=== PATIENT | male | born 1955 ===

== ENCOUNTER 2018-04-06 02:43 | Inpatient (IN) | payer MEDICAID, OTHER ==
[~2018-04-06] VITALS: Ht 188 cm; Wt 111.7 kg
[~2018-04-06 02:43] MED LIST: ATEN25TA PO; CARV-39 PO; CARV12.52 PO; DICY20TA3 PO; ENOX150S5 SQ; FOLI-17 PO; LACT20SO13 PO; LEVO125T5 PO; LEVO25TA2 PO; LEVO25TA4 PO; LISI-167 PO; LOPE2CAP PO; LORA-446 PO; METF10002 PO; METF500T17 PO; MULT-658 PO; MULT-750 PO; NIFE10CA49 PO; OMEP-110 PO; OMEP20TA62 PO; ONDA4TAB13 SL; OXYC5TAB3 PO; PANT40TA5 PO; PROM25TA10 PO; PROP20TA PO; RIFA550T4 PO; SUCR1ORA5 PO; THIA100T67 PO; WARF5TAB PO
[2018-04-06] MEDS ORDERED: LORazepam 2 MG/ML, 1ML ONE (02:54)
[2018-04-06] MEDS ORDERED: PROMETHAZINE 25 MG/ML, 1ML ONE (02:55)
[2018-04-06] MEDS ORDERED: SODIUM CHLORIDE FLUSH 10ML SYR IVF ONE (03:00)
[2018-04-06] MEDS ORDERED: LORazepam 2 MG/ML, 1ML IVPush PRN (03:00)
[2018-04-06] MEDS ORDERED: PROMETHAZINE 25 MG/ML, 1ML IM ONE (03:00)
[2018-04-06] MEDS ORDERED: MAGNESIUM SULFATE 1 GM, THIAMINE 100 MG, FOLIC ACID 1 MG, MVI ADULT 10 ML in SODIUM CHL... IV ONE (03:00)
--- NOTE | 2018-04-06 03:00 | NUR ---
PT RESTING ON GURNEY, MONITORS IN PLACE, CALL LIGHT WITHIN REACH, SIDERAILS UP X2. PT MEDICATED PER MAR
[2018-04-06 03:03] LABS: BASOPHILS # (AUTO) 0.01 x10^3/uL (0-0.1); BASOPHILS % (AUTO) 0 % (0-1); EOSINOPHILS # (AUTO) 0.18 x10^3/uL (0-0.4); EOSINOPHILS % (AUTO) 4 % (1-7); LYMPHOCYTES # (AUTO) 1.39 x10^3/uL (1-3.4); LYMPHOCYTES % (AUTO) 30 % (22-44); MD NO; MEAN CORPUSCULAR HGB CONC 34.1 g/dL (33.2-36.2); MEAN CORPUSCULAR VOLUME 93.8 fL (81-97); MEAN PLATELET VOLUME 6.6 fL (7.4-10.4); MONOCYTES # (AUTO) 0.46 x10^3/uL (0.2-0.8); MONOCYTES % (AUTO) 10 % (2-9); NEUTROPHILS # (AUTO) 2.63 x10^3/uL (1.8-6.8); NEUTROPHILS % (AUTO) 56 % (42-75); PLATELET COUNT 112 x10^3/uL (130-400); RED CELL DISTRIBUTION WIDTH 14.5 % (9.4-14.8)
[2018-04-06 03:13] LABS: INTERNATIONAL NORMALIZED RATIO 1.09 (0.93-1.1); PROTHROMBIN TIME 11.4 Seconds (9.6-11.5)
[2018-04-06 03:15] LABS: ALANINE AMINOTRANSFERASE 84 U/L (12-78); ALBUMIN 3.3 g/dL (3.4-5.0); ANION GAP 9 mmol/L (5-15); CALCIUM 7.7 mg/dL (8.5-10.1); CHLORIDE 100 mmol/L (98-107); CREATININE 0.72 mg/dL (0.7-1.3)
[2018-04-06 03:19] LABS: ALKALINE PHOSPHATASE 92 U/L (45-117); TOTAL PROTEIN 8.4 g/dL (6.4-8.2); TROPONIN I < 0.015 ng/mL (0.000-0.045)
--- NOTE | 2018-04-06 03:42 | NUR ---
PT RESTING CALMLY WITH EYES CLOSED, OPENS EYES TO VERBAL RESPONSE, MONITORS IN PLACE, SIDERAILS UP X2, CALL LIGHT WITHIN REACH, IV FLUIDS INFUSING. AWAITING ROOM FOR TRANSFER TO FLOOR
[2018-04-06 04:49] VITALS: BP 126/71
[2018-04-06] MEDS: LEVOTHYROXINE 125 MCG TABLET PO SCH (06:00)
[2018-04-06] MEDS ORDERED: DOCUSATE 100 MG CAPSULE PO PRN (06:00)
[2018-04-06] MEDS ORDERED: POLYETHYLENE GLYCOL 17 GM PACKET PO PRN (06:00)
[2018-04-06] MEDS ORDERED: PROMETHAZINE 25 MG/ML, 1ML IM PRN (06:00)
[2018-04-06] MEDS ORDERED: ONDANSETRON 2MG/ML, 2ML IVPush PRN (06:00)
[2018-04-06] MEDS: LACTULOSE 20 GM/30 ML UDC PO SCH ×3 (06:00→20:29)
[2018-04-06] MEDS ORDERED: ONDANSETRON ODT 4 MG PO PRN (06:00)
[2018-04-06] MEDS ORDERED: hydrALAzine 20 MG/ML, 1ML IVPush PRN (06:00)
[2018-04-06] MEDS ORDERED: HYDROmorphone 2 MG/ML, 1ML IVPush PRN (06:00)
[2018-04-06] MEDS ORDERED: BISACODYL 10 MG SUPP PR PRN (06:00)
[2018-04-06] MEDS: HEPARIN 5,000 UNITS/ML, 1ML SQ SCH ×3 (06:38→22:09)
[2018-04-06 06:50] LABS: TROPONIN I < 0.015 ng/mL (0.000-0.045)
[2018-04-06 06:53] LABS: HEMOGLOBIN A1C 6.5 % (4.2-6.3)
[2018-04-06 06:54] VITALS: BP 110/64
[2018-04-06 06:56] LABS: FREE T4 (FREE THYROXINE) 0.87 ng/dL (0.76-1.46)
[2018-04-06] MEDS ORDERED: PANTOPRAZOLE 40 MG IV IVPush SCH (07:30)
[2018-04-06] MEDS: INSULIN LISPRO 100 UNITS/ML, PEN SQ-INSULIN SCH ×4 (09:12→20:03)
[2018-04-06] MEDS ORDERED: LORazepam 1MG TABLET PO PRN ×2 (10:00)
[2018-04-06] MEDS: FOLIC ACID 1 MG TABLET PO SCH (10:17)
[2018-04-06] MEDS: MULTIVITAMIN 1 TABLET PO SCH (10:17)
[2018-04-06] MEDS: LORazepam 1MG TABLET PO PRN ×3 (10:17→14:45)
[2018-04-06] MEDS: ATENOLOL 25 MG TABLET PO SCH (10:18)
[2018-04-06] MEDS: THIAMINE 100MG TABLET PO SCH (10:18)
[2018-04-06 12:18] LABS: TROPONIN I < 0.015 ng/mL (0.000-0.045)
[2018-04-06] MEDS: THIAMINE 200 MG, MVI ADULT 10 ML, FOLIC ACID 1 MG in D5%-0.9% NACL 1,000 ML IV SCH (12:36)
[2018-04-06 12:43] VITALS: BP 132/62
[2018-04-06 13:30] VITALS: BP 107/59
[2018-04-06 15:45] VITALS: BP 115/61
[2018-04-06 19:10] VITALS: BP 109/59
[2018-04-07 01:52] VITALS: BP 106/87
[2018-04-07] MEDS: HEPARIN 5,000 UNITS/ML, 1ML SQ SCH ×3 (05:41→21:00)
[2018-04-07] MEDS: PANTOPROZOLE 40MG TABLET PO SCH (05:41)
[2018-04-07] MEDS: LEVOTHYROXINE 125 MCG TABLET PO SCH (05:41)
[2018-04-07 05:43] LABS: MEAN CORPUSCULAR HEMOGLOBIN 32.1 pg (27.5-34.5); MEAN CORPUSCULAR VOLUME 94.3 fL (81-97); MEAN PLATELET VOLUME 7.1 fL (7.4-10.4); PLATELET COUNT 91 x10^3/uL (130-400); RED BLOOD COUNT 3.99 x10^6/uL (4.38-5.82); RED CELL DISTRIBUTION WIDTH 14.7 % (9.4-14.8)
[2018-04-07 06:07] LABS: CHLORIDE 106 mmol/L (98-107)
[2018-04-07 06:09] LABS: MD YES
[2018-04-07 06:17] LABS: BAND#(MANUAL) 0.14 x10^3/uL; BANDS%(MANUAL) 4 % (0-7); LYMPH#(MANUAL) 0.68 x10^3/uL (1-3.4); LYMPHS% (MANUAL) 19 % (22-44); MONOS#(MANUAL) 0.47 x10^3/uL (0.3-2.7); MONOS% (MANUAL) 13 % (2-9)
[2018-04-07 06:18] LABS: EOS#(MANUAL) 0.22 x10^3/uL (0.0-0.4); EOS% (MANUAL) 6 % (1-7); SEG#(MANUAL) 2.09 x10^3/uL (1.8-6.8); SEGS% (MANUAL) 58 % (42-75)
[2018-04-07 06:22] LABS: ALANINE AMINOTRANSFERASE 61 U/L (12-78); ALBUMIN 2.9 g/dL (3.4-5.0); ALKALINE PHOSPHATASE 74 U/L (45-117); ANION GAP 5 mmol/L (5-15); BILIRUBIN,TOTAL 2.1 mg/dL (0.2-1.0); CALCIUM 7.4 mg/dL (8.5-10.1); CHOL/HDL RATIO 2.3; CHOLESTEROL, TOTAL 148 mg/dL (140-239); CREATININE 0.57 mg/dL (0.7-1.3); HDL CHOL % 44 % (26-37); HDL CHOLESTEROL (DIRECT) 65 mg/dL (40-60); LDL CHOLESTEROL,CALCULATED 61 mg/dL (54-169); LDL/HDL RATIO 0.9 (0.5-3.0); TOTAL PROTEIN 7.2 g/dL (6.4-8.2); TRIGLYCERIDES 112 mg/dL (50-200); VLDL CHOLESTEROL 22 mg/dL (0-25)
[2018-04-07 06:23] LABS: <PLATELET ESTIMATE> DECREASED; <PLT MORPHOLOGY> NORMAL PLT MORPH; <RBC MORPHOLOGY> NORMAL
[2018-04-07 07:45] VITALS: BP 115/61
[2018-04-07] MEDS: INSULIN LISPRO 100 UNITS/ML, PEN SQ-INSULIN SCH ×4 (08:00→21:00)
[2018-04-07] MEDS: LACTULOSE 20 GM/30 ML UDC PO SCH ×3 (09:00→21:00)
[2018-04-07] MEDS: MULTIVITAMIN 1 TABLET PO SCH (09:58)
[2018-04-07] MEDS: ATENOLOL 25 MG TABLET PO SCH (09:58)
[2018-04-07] MEDS: LORazepam 1MG TABLET PO PRN (09:58)
[2018-04-07] MEDS: FOLIC ACID 1 MG TABLET PO SCH (09:58)
[2018-04-07] MEDS: THIAMINE 100MG TABLET PO SCH (09:58)
[2018-04-07] MEDS: LACTATED RINGERS 1,000 ML IV SCH ×2 (09:59→20:00)
[2018-04-07 10:30] VITALS: BP 130/64
[2018-04-07] MEDS: THIAMINE 200 MG, MVI ADULT 10 ML, FOLIC ACID 1 MG in D5%-0.9% NACL 1,000 ML IV SCH (13:19)
[2018-04-07 14:55] VITALS: BP 117/61
[2018-04-07] MEDS: LORazepam 0.5MG TABLET PO PRN (15:17)
[2018-04-07 19:17] VITALS: BP 122/65
[2018-04-08 01:52] VITALS: BP 116/62
[2018-04-08] MEDS: PANTOPROZOLE 40MG TABLET PO SCH (05:07)
[2018-04-08] MEDS: LEVOTHYROXINE 125 MCG TABLET PO SCH (05:07)
[2018-04-08] MEDS: INSULIN LISPRO 100 UNITS/ML, PEN SQ-INSULIN SCH ×4 (07:00→20:24)
[2018-04-08 07:44] VITALS: BP 128/71
[2018-04-08] MEDS: LACTATED RINGERS 1,000 ML IV SCH (08:30)
[2018-04-08] MEDS: FOLIC ACID 1 MG TABLET PO SCH (08:31)
[2018-04-08] MEDS: LACTULOSE 20 GM/30 ML UDC PO SCH ×3 (08:31→20:27)
[2018-04-08] MEDS: THIAMINE 100MG TABLET PO SCH (08:31)
[2018-04-08] MEDS: HEPARIN 5,000 UNITS/ML, 1ML SQ SCH ×2 (08:32→20:24)
[2018-04-08] MEDS: ATENOLOL 25 MG TABLET PO SCH (08:32)
[2018-04-08] MEDS: MULTIVITAMIN 1 TABLET PO SCH (08:32)
[2018-04-08] MEDS: THIAMINE 200 MG, MVI ADULT 10 ML, FOLIC ACID 1 MG in D5%-0.9% NACL 1,000 ML IV SCH (14:30)
[2018-04-08 15:55] VITALS: BP 128/72
[2018-04-08 19:54] VITALS: BP 160/85
[2018-04-08] MEDS: LORazepam 0.5MG TABLET PO PRN (20:25)
[2018-04-09 02:56] VITALS: BP 148/76
[2018-04-09] MEDS: LORazepam 0.5MG TABLET PO PRN (03:07)
[2018-04-09] MEDS: PANTOPROZOLE 40MG TABLET PO SCH (05:54)
[2018-04-09] MEDS: LEVOTHYROXINE 125 MCG TABLET PO SCH (05:54)
[2018-04-09 06:13] LABS: CALCIUM 7.8 mg/dL (8.5-10.1); CHLORIDE 106 mmol/L (98-107)
[2018-04-09 06:17] LABS: ANION GAP 7 mmol/L (5-15); CREATININE 0.61 mg/dL (0.7-1.3)
[2018-04-09] MEDS: INSULIN LISPRO 100 UNITS/ML, PEN SQ-INSULIN SCH ×2 (07:00→12:15)
[2018-04-09 08:00] VITALS: BP 122/65
[2018-04-09] MEDS ORDERED: THIA100T27 PO (09:17)
[2018-04-09] MEDS ORDERED: LORA-445 PO (09:17)
[2018-04-09] MEDS: LACTULOSE 20 GM/30 ML UDC PO SCH (10:31)
[2018-04-09] MEDS: THIAMINE 100MG TABLET PO SCH (10:31)
[2018-04-09] MEDS: ATENOLOL 25 MG TABLET PO SCH (10:34)
[2018-04-09] MEDS: MULTIVITAMIN 1 TABLET PO SCH (10:34)
[2018-04-09] MEDS: FOLIC ACID 1 MG TABLET PO SCH (10:35)
[2018-04-09] MEDS: HEPARIN 5,000 UNITS/ML, 1ML SQ SCH (10:35)
== END 2018-04-09 13:20 | disposition home or self-care (01) | DRG 57 ==
LOC: ED 03:20 → EDIP 03:28 → 5SO 04:26 → 4WST 12:16 → DCLOUNGE 04-09 12:52
PROVIDERS: ADMIT Internal Medicine; ATTEND Internal Medicine
DX: G31.2 Degeneration of nervous system due to alcohol (principal); D68.59 Other primary thrombophilia; F10.239 Alcohol dependence with withdrawal, unspecified; I85.00 Esophageal varices without bleeding; E03.9 Hypothyroidism, unspecified; E11.9 Type 2 diabetes mellitus without complications; E86.0 Dehydration; F10.220 Alcohol dependence with intoxication, uncomplicated; F41.9 Anxiety disorder, unspecified; I11.0 Hypertensive heart disease with heart failure; I50.9 Heart failure, unspecified; K29.20 Alcoholic gastritis without bleeding; K70.30 Alcoholic cirrhosis of liver without ascites; E11.65 Type 2 diabetes mellitus with hyperglycemia; K70.10 Alcoholic hepatitis without ascites
CPT/HCPCS: 36415; 99285; J7042; 71045; 76700; 80048; 80053; 80061; 80307; 82140; 82962; 83036; 83690; 83880; 84439; 84443; 84484; 85025; 85610; 85730; 93005; 93306; 96372; 96374; 96375; G0378; J1644; J2405; J2550; J3411; J3475; C9113; J1815; J2060; J7030; J7120

== ENCOUNTER 2018-04-12 04:14 | Inpatient (IN) | payer OTHER ==
[~2018-04-12] VITALS: Ht 185.4 cm; Wt 110.7 kg
[~2018-04-12 04:14] MED LIST changes: +LORA-445 PO; +THIA100T27 PO
--- NOTE | 2018-04-12 04:38 | NUR ---
PT HERE FOR RED BLOOD IN STOOL THIS MORNING ON 3:30. PT HAS HX OF VARICES AND GI BLEED FROM ETOH USE. VSS. CALL LIGHT IN REACH
--- NOTE | 2018-04-12 04:42 | NUR ---
REPORT TO VINH MARINELLI.
--- NOTE | 2018-04-12 04:45 | NUR ---
REPORT RECEIVED FROM ISIS YEAGER
[2018-04-12] MEDS ORDERED: PANTOPRAZOLE 80 MG in SODIUM CHLORIDE 0.9% 50 ML IVPB ONE (04:51)
[2018-04-12] MEDS ORDERED: SODIUM CHLORIDE FLUSH 10ML SYR IVF ONE (05:00)
--- NOTE | 2018-04-12 05:35 | NUR ---
POURER METAL FOR RECTAL EXAM WITH ABIGAIL HARGROVE
--- NOTE | 2018-04-12 05:55 | NUR ---
IV ESTABLISHED AND PT MEDICATED PER EMAR. 5 RIGHTS ADDRESSED
[2018-04-12 06:24] LABS: MEAN CORPUSCULAR HEMOGLOBIN 32.1 pg (27.5-34.5); MEAN CORPUSCULAR VOLUME 94.4 fL (81-97); MEAN PLATELET VOLUME 6.3 fL (7.4-10.4); PLATELET COUNT 119 x10^3/uL (130-400); RED BLOOD COUNT 4.35 x10^6/uL (4.38-5.82); RED CELL DISTRIBUTION WIDTH 15.1 % (9.4-14.8)
[2018-04-12 06:32] LABS: INTERNATIONAL NORMALIZED RATIO 1.06 (0.93-1.1); PROTHROMBIN TIME 11.1 Seconds (9.6-11.5)
[2018-04-12 06:35] LABS: ALANINE AMINOTRANSFERASE 77 U/L (12-78); ALBUMIN 3.3 g/dL (3.4-5.0); ANION GAP 7 mmol/L (5-15); CALCIUM 8.2 mg/dL (8.5-10.1); CHLORIDE 110 mmol/L (98-107)
[2018-04-12 06:38] LABS: ALKALINE PHOSPHATASE 101 U/L (45-117); BILIRUBIN,TOTAL 0.5 mg/dL (0.2-1.0); CREATININE 0.71 mg/dL (0.7-1.3); TOTAL PROTEIN 8.3 g/dL (6.4-8.2)
[2018-04-12 06:39] LABS: BASOPHILS # (AUTO) 0.02 x10^3/uL (0-0.1); BASOPHILS % (AUTO) 1 % (0-1); EOSINOPHILS # (AUTO) 0.33 x10^3/uL (0-0.4); EOSINOPHILS % (AUTO) 9 % (1-7); LYMPHOCYTES # (AUTO) 1.36 x10^3/uL (1-3.4); LYMPHOCYTES % (AUTO) 36 % (22-44); MD SCAN; MONOCYTES # (AUTO) 0.52 x10^3/uL (0.2-0.8); MONOCYTES % (AUTO) 14 % (2-9); NEUTROPHILS # (AUTO) 1.49 x10^3/uL (1.8-6.8); NEUTROPHILS % (AUTO) 40 % (42-75)
--- NOTE | 2018-04-12 07:00 | NUR ---
REPORT RECEIVED, CARE ASSUMED.
--- NOTE | 2018-04-12 07:59 | NUR ---
PT CONT SLEEPING, NO ACUTE DISTRESS NOTED. CONT TO MONITOR.
--- NOTE | 2018-04-12 07:59 | NUR ---
dr sanchez spoke with dr saadia garcia
--- NOTE | 2018-04-12 08:16 | NUR ---
REPORT CALLED TO NURY BHAT DISCUSSED.
--- NOTE | 2018-04-12 08:22 | NUR ---
PT AROUSES TO NAME, A&O X4. PT UPDATED ON POC.
[2018-04-12] MEDS ORDERED: ASCO500T12 PO (08:28)
[2018-04-12] MEDS ORDERED: LACT10SO28 PO (08:28)
[2018-04-12 08:51] VITALS: BP 146/86
[2018-04-12] MEDS ORDERED: OCTREOTIDE 500 MCG in SODIUM CHLORIDE 0.9% 249 ML IV SCH (09:00)
[2018-04-12] MEDS: LEVOTHYROXINE 125 MCG TABLET PO SCH (09:00)
[2018-04-12] MEDS: ATENOLOL 25 MG TABLET PO SCH (09:00)
[2018-04-12 10:00] VITALS: BP 143/77
[2018-04-12] MEDS: PANTOPRAZOLE 80 MG in SODIUM CHLORIDE 0.9% 100 ML IV SCH ×2 (10:10→21:40)
[2018-04-12] MEDS ORDERED: ACETAMINOPHEN 325 MG TABLET PO PRN (11:00)
[2018-04-12] MEDS ORDERED: hydrALAzine 20 MG/ML, 1ML IVPush PRN (11:00)
[2018-04-12] MEDS: LORazepam 2 MG/ML, 1ML IVPush PRN ×3 (11:38→21:40)
[2018-04-12 12:11] LABS: BASOPHILS # (AUTO) 0.03 x10^3/uL (0-0.1); BASOPHILS % (AUTO) 1 % (0-1); EOSINOPHILS # (AUTO) 0.34 x10^3/uL (0-0.4); EOSINOPHILS % (AUTO) 9 % (1-7); LYMPHOCYTES # (AUTO) 1.34 x10^3/uL (1-3.4); LYMPHOCYTES % (AUTO) 36 % (22-44); MD NO; MEAN CORPUSCULAR HEMOGLOBIN 32.4 pg (27.5-34.5); MEAN CORPUSCULAR HGB CONC 34.4 g/dL (33.2-36.2); MEAN CORPUSCULAR VOLUME 94.4 fL (81-97); MEAN PLATELET VOLUME 6.3 fL (7.4-10.4); MONOCYTES # (AUTO) 0.46 x10^3/uL (0.2-0.8); MONOCYTES % (AUTO) 12 % (2-9); NEUTROPHILS # (AUTO) 1.58 x10^3/uL (1.8-6.8); NEUTROPHILS % (AUTO) 42 % (42-75); PLATELET COUNT 121 x10^3/uL (130-400); RED BLOOD COUNT 4.23 x10^6/uL (4.38-5.82)
[2018-04-12 13:19] VITALS: BP 127/63
[2018-04-12] MEDS: LACTULOSE 10 GM/15 ML UDC PO SCH ×3 (16:00→21:40)
[2018-04-12] MEDS: ASCORBIC ACID 500 MG TABLET PO SCH (16:33)
[2018-04-12] MEDS: MULTIVITAMIN 1 TABLET PO SCH (16:33)
[2018-04-12] MEDS: FOLIC ACID 1 MG TABLET PO SCH (16:33)
[2018-04-12] MEDS: THIAMINE 100MG TABLET PO SCH (16:33)
[2018-04-12 19:40] VITALS: BP 135/77
[2018-04-13 01:26] VITALS: BP 147/75
[2018-04-13] MEDS: LORazepam 2 MG/ML, 1ML IVPush PRN (05:34)
[2018-04-13 06:11] LABS: BASOPHILS # (AUTO) 0.02 x10^3/uL (0-0.1); BASOPHILS % (AUTO) 1 % (0-1); EOSINOPHILS # (AUTO) 0.39 x10^3/uL (0-0.4); EOSINOPHILS % (AUTO) 10 % (1-7); LYMPHOCYTES # (AUTO) 1.42 x10^3/uL (1-3.4); LYMPHOCYTES % (AUTO) 36 % (22-44); MD NO; MEAN CORPUSCULAR HEMOGLOBIN 31.8 pg (27.5-34.5); MEAN CORPUSCULAR HGB CONC 33.7 g/dL (33.2-36.2); MEAN CORPUSCULAR VOLUME 94.6 fL (81-97); MEAN PLATELET VOLUME 7.1 fL (7.4-10.4); MONOCYTES # (AUTO) 0.52 x10^3/uL (0.2-0.8); MONOCYTES % (AUTO) 13 % (2-9); NEUTROPHILS % (AUTO) 40 % (42-75); PLATELET COUNT 117 x10^3/uL (130-400); RED BLOOD COUNT 4.29 x10^6/uL (4.38-5.82)
[2018-04-13 06:23] LABS: ANION GAP 3 mmol/L (5-15); CALCIUM 8.1 mg/dL (8.5-10.1); CHLORIDE 108 mmol/L (98-107); CREATININE 0.77 mg/dL (0.7-1.3)
[2018-04-13 06:44] VITALS: BP 144/78
[2018-04-13] MEDS: FOLIC ACID 1 MG TABLET PO SCH (09:12)
[2018-04-13] MEDS: MULTIVITAMIN 1 TABLET PO SCH (09:12)
[2018-04-13] MEDS: ASCORBIC ACID 500 MG TABLET PO SCH (09:12)
[2018-04-13] MEDS: THIAMINE 100MG TABLET PO SCH (09:12)
[2018-04-13] MEDS: LEVOTHYROXINE 125 MCG TABLET PO SCH (09:12)
[2018-04-13] MEDS: ATENOLOL 25 MG TABLET PO SCH (09:13)
[2018-04-13] MEDS: LACTULOSE 10 GM/15 ML UDC PO SCH (09:13)
[2018-04-13] MEDS: PANTOPRAZOLE 80 MG in SODIUM CHLORIDE 0.9% 100 ML IV SCH (09:30)
== END 2018-04-13 12:05 | disposition left against medical advice (07) | DRG 378 ==
LOC: ED 07:50 → EDIP 07:58 → 3NE 08:31
PROVIDERS: ADMIT Hospitalist; ATTEND Hospitalist
DX: K92.1 Melena (principal); F10.239 Alcohol dependence with withdrawal, unspecified; E11.9 Type 2 diabetes mellitus without complications; F10.229 Alcohol dependence with intoxication, unspecified; I11.0 Hypertensive heart disease with heart failure; I50.9 Heart failure, unspecified; K70.30 Alcoholic cirrhosis of liver without ascites; E03.9 Hypothyroidism, unspecified; Z79.01 Long term (current) use of anticoagulants; Z91.19 Patient's noncompliance with other medical treatment and regimen; Z88.5 Allergy status to narcotic agent; Z71.41 Alcohol abuse counseling and surveillance of alcoholic
CPT/HCPCS: 36415; 80048; 80053; 82140; 83690; 83735; 84100; 85025; 85610; 86677; 96365; 99285; G0378; J2354; C9113; J2060; J7050

== ENCOUNTER 2018-04-17 09:55 | Emergency (ER) | payer OTHER ==
[~2018-04-17] VITALS: Ht 185.4 cm; Wt 113.3 kg
[~2018-04-17 09:55] MED LIST changes: +ASCO500T12 PO; +LACT10SO28 PO
[2018-04-17] MEDS ORDERED: LORazepam 2 MG/ML, 1ML ONE (10:19)
--- NOTE | 2018-04-17 10:25 | NUR ---
pt to room. evaluated pt. iv access is obtained. pt medicated per order. pt placed on nibp, o2, and cardiac monitoring.
[2018-04-17] MEDS ORDERED: LORazepam 2 MG/ML, 1ML IVPush PRN (10:30)
[2018-04-17 10:33] LABS: BASOPHILS # (AUTO) 0.03 x10^3/uL (0-0.1); BASOPHILS % (AUTO) 1 % (0-1); EOSINOPHILS # (AUTO) 0.39 x10^3/uL (0-0.4); EOSINOPHILS % (AUTO) 7 % (1-7); LYMPHOCYTES % (AUTO) 27 % (22-44); MD NO; MEAN CORPUSCULAR HEMOGLOBIN 31.5 pg (27.5-34.5); MEAN CORPUSCULAR HGB CONC 33.5 g/dL (33.2-36.2); MEAN PLATELET VOLUME 6.8 fL (7.4-10.4); MONOCYTES # (AUTO) 0.61 x10^3/uL (0.2-0.8); MONOCYTES % (AUTO) 11 % (2-9); NEUTROPHILS # (AUTO) 3.08 x10^3/uL (1.8-6.8); NEUTROPHILS % (AUTO) 55 % (42-75); PLATELET COUNT 158 x10^3/uL (130-400); RED BLOOD COUNT 4.64 x10^6/uL (4.38-5.82); RED CELL DISTRIBUTION WIDTH 15.1 % (9.4-14.8)
[2018-04-17 10:38] LABS: ALBUMIN 3.6 g/dL (3.4-5.0); ANION GAP 5 mmol/L (5-15); CALCIUM 8.5 mg/dL (8.5-10.1); CHLORIDE 107 mmol/L (98-107)
[2018-04-17 11:55] VITALS: BP 142/73
== END 2018-04-17 12:24 | disposition home or self-care (01) ==
LOC: ED 12:17
DX: F10.239 Alcohol dependence with withdrawal, unspecified (principal); E11.9 Type 2 diabetes mellitus without complications; I10 Essential (primary) hypertension; Z87.891 Personal history of nicotine dependence; Z72.9 Problem related to lifestyle, unspecified; Y90.9 Presence of alcohol in blood, level not specified
CPT/HCPCS: 36415; 71045; 80048; 82040; 85025; 93005; 96374; 99284; J2060

== ENCOUNTER 2018-06-27 21:39 | Emergency (ER) | payer OTHER ==
[~2018-06-27] VITALS: Ht 185.4 cm; Wt 105.0 kg
--- NOTE | 2018-06-27 21:49 | NUR ---
BRADLEY. REPORT RECEIVED FROM EMS. +ETOH. PT C/O NAUSEA. DENIES ANY PAIN/V/D. LAST DRINK TODAY AT 3PM. PT'S AOX4. RESPS EVEN AND UNLABORED. BP/SPO2 MONITORS IN PLACE. CALL LIGHT WITHIN REACH.
[2018-06-27] MEDS ORDERED: ONDANSETRON ODT 4 MG PO ONE (22:00)
[2018-06-27] MEDS ORDERED: ONDANSETRON ODT 4 MG ONE (22:01)
--- NOTE | 2018-06-27 22:05 | NUR ---
PT MEDICATED PER EMAR FOR NAUSEA. PT TOLERATED WELL.
--- NOTE | 2018-06-27 22:07 | NUR ---
PT URINATING IN URINAL AT THIS TIME.
[2018-06-27 22:27] LABS: BASOPHILS # (AUTO) 0.04 x10^3/uL (0-0.1); BASOPHILS % (AUTO) 1 % (0-1); EOSINOPHILS # (AUTO) 0.18 x10^3/uL (0-0.4); EOSINOPHILS % (AUTO) 5 % (1-7); LYMPHOCYTES # (AUTO) 1.49 x10^3/uL (1-3.4); LYMPHOCYTES % (AUTO) 38 % (22-44); MD NO; MEAN CORPUSCULAR HEMOGLOBIN 31.6 pg (27.5-34.5); MEAN CORPUSCULAR HGB CONC 33.4 g/dL (33.2-36.2); MEAN CORPUSCULAR VOLUME 94.7 fL (81-97); MEAN PLATELET VOLUME 6.6 fL (7.4-10.4); MONOCYTES # (AUTO) 0.54 x10^3/uL (0.2-0.8); MONOCYTES % (AUTO) 14 % (2-9); NEUTROPHILS # (AUTO) 1.65 x10^3/uL (1.8-6.8); NEUTROPHILS % (AUTO) 42 % (42-75); PLATELET COUNT 119 x10^3/uL (130-400); RED BLOOD COUNT 4.44 x10^6/uL (4.38-5.82); RED CELL DISTRIBUTION WIDTH 15.2 % (9.4-14.8)
[2018-06-27 22:32] LABS: ALBUMIN 3.3 g/dL (3.4-5.0); ANION GAP 7 mmol/L (5-15); CALCIUM 7.8 mg/dL (8.5-10.1); CHLORIDE 102 mmol/L (98-107)
[2018-06-27 22:37] LABS: ALANINE AMINOTRANSFERASE 96 U/L (12-78); ALKALINE PHOSPHATASE 113 U/L (45-117); BILIRUBIN,TOTAL 0.6 mg/dL (0.2-1.0); CREATININE 0.75 mg/dL (0.7-1.3); TOTAL PROTEIN 8.4 g/dL (6.4-8.2)
--- NOTE | 2018-06-27 23:19 | NUR ---
PT SLEEPING IN [facility]. RESPS EVEN AND UNLABORED. BP/SPO2 MONITORS IN PLACE. CALL LIGHT WITHIN REACH.
--- NOTE | 2018-06-28 00:11 | NUR ---
Note vicki in EDM - 06/28/18 at 0030 by IDA EDMD AT BEDSIDE TO EXPLAIN ALL RESULTS. AWAITING DC NOW.
--- NOTE | 2018-06-28 00:23 | NUR ---
PT TRIED TO STAND UP BUT STILL UNSTEADY. PT IS NOT SAFE TO BE DC AT THIS TIME.
--- NOTE | 2018-06-28 01:07 | NUR ---
PT SLEEPING IN GURNEY. RESPS EVEN AND UNLABORED.
--- NOTE | 2018-06-28 01:29 | NUR ---
PT SLEEPING ON GUMAHAD, VSDarrel AND WILL CONT TO MONITOR.
[2018-06-28 01:44] VITALS: BP 140/76
--- NOTE | 2018-06-28 02:03 | NUR ---
PT GIVEN DC INSTRUCTIONS. PT AMB TO BR WITH STEADY GAIT BEFORE DC. PT'S AOX4. RESPS EVEN AND UNLABORED. NO ACUTE DISTRESS AT DC.
== END 2018-06-28 02:03 | disposition home or self-care (01) ==
LOC: ED 22:17
DX: F10.220 Alcohol dependence with intoxication, uncomplicated (principal); Z72.9 Problem related to lifestyle, unspecified; I10 Essential (primary) hypertension; E11.9 Type 2 diabetes mellitus without complications; Z87.891 Personal history of nicotine dependence
CPT/HCPCS: 36415; 80053; 80307; 85025; 99283; Q0162